=== PATIENT | male | born 2005 | race Asian ===

== ENCOUNTER 2025-02-06 19:35 | Emergency (ER) | payer OTHER, SELFPAY ==
--- NOTE | ~2025-02-06 | XR_ITS ---
CLINICAL HISTORY: injured playing soccer 2 view left tibia-fibula Comparison: None provided Findings No fractures or dislocations. No joint effusion. No radiopaque foreign body. IMPRESSION: 1. Normal left tibia-fibula This document has been electronically signed by: Thalia Frances MD on 02/06/2025 20:46:20
[2025-02-06 19:40] VITALS: BP 145/79; PULSE 96; RESP 20; TEMP 36.5; O2SAT 98; BMI 31.3
--- NOTE | 2025-02-06 19:41 | ED.GENADULT ---
HPI - General Adult General Chief complaint: Extremity Problem Stated complaint: injured lt leg playing soccer Time Seen by Provider: 02/06/25 20:48 Source: patient Mode of arrival: ambulatory Limitations: no limitations History of Present Illness ED Provider: Dr. Winkler HPI narrative: This is a 19-year-old male presenting to ER today for evaluation of left lower leg pain. Patient stated that he was playing soccer when he should attempt to kick the ball and felt a sudden onset of left lateral tibia pain. Patient has difficulty with ambulating due to the pain. Some tenderness upon flexion of the ankle. Related Data Allergies Allergy/AdvReac Type Severity Reaction Status Date / Time No Known Allergies Allergy Verified 02/06/25 19:42 Review of Systems Review of Systems: Pertinent review of systems as mentioned in HPI. All other system otherwise negative. [facility] Past Medical History [facility] Narrative: None Social History Social History Advance Directives: No Advance Directives Information Provided: No Physical Exam ED Exam Exam: General: Pleasant, no distress, interacting appropriately Head: Normacephalic, atraumatic Extremities: Lateral fibula tenderness on palpation. Reproducible on exam. Had full range of motion of ankle. And knee. Neurological: Awake and alert, no facial droop noted Skin: Warm and dry Psychiatric: Appropriate mood and thoughts Vital Signs: Vital Signs - 24 hr 02/06/25 19:40 02/06/25 21:14 02/06/25 21:23 Temperature 97.7 F 98.0 F 98.0 F Pulse Rate 96 91 91 Respiratory Rate 20 18 18 Blood Pressure 145/79 H 143/86 H 143/86 H Pulse Oximetry 98 96 96 Oxygen Delivery Method Room Air Room Air Room Air BMI result Body Mass Index 31.3 Course Course Course Narrative: This is a rapid medical exam performed by Fidelina Hennessy NP: Additional HPI, ROS, PE not included below will be deferred to primary provider. Patient is a 19y/o M presenting with L lower leg pain x a few hours. Was playing soccer, planted L foot, went to kick with R foot but before he could kick the ball he felt a pop to L lower leg and pain. Plan: xray Medications Administered Discontinued Medications Generic Name Dose Route Start Last Admin Trade Name Freq PRN Reason Stop Dose Admin Acetaminophen 975 mg 02/06/25 21:15 02/06/25 21:20 Acetaminophen 325 Mg Tablet PO 02/06/25 21:16 975 mg ONCE ONE Administration Ibuprofen 400 mg 02/06/25 21:15 02/06/25 21:20 Ibuprofen 400 Mg Tablet PO 02/06/25 21:16 400 mg ONCE ONE Administration Medical Decision Making Medical Decision Making [facility] Narrative: 19-year-old male presented hospital today for left leg pain after attempting to kick a soccer ball. Suspect patient likely has contusion of his left leg. Patient may also have a muscle tear from kicking the ball. We will plan to discharge the patient does time. Follow up with his primary care doctor. Referral to primary care doctor will be provided the patient. Patient is stable. Able to ambulate. X-ray was negative for any signs of fracture. Differential Diagnosis Differential Diagnoses: The differential diagnosis associated with the presentation includes Calf strain, sprain of ankle, fibular fracture Independent Interpretation I performed an independent interpretation of an: Plain X-Ray Radiology Impression Discussion of test interpretation with radiology: I have reviewed the radiologist's reading. Discharge Plan Discharge Clinical Impression: Injury of calf Patient Disposition: Home, Self-Care Additional Instructions: You can take tylenol 1000mg every 8 hours or ibuprofen 400mg every 8 hours. Use lidocaine patch as need as well. Activity as tolerated. I suspect you have a calf tear. This will take time to heal. Avoid strenuous activity Referrals: [facility] [place] Primary Ragini Robertson [Provider Group, Internal Medicine] Interventions: ED Discharge Assessment Last Done: 02/06/25 21:23 Discharge Date/Time: 02/06/25 21:23 Print Language: Bulgarian
[2025-02-06 21:14] VITALS: BP 143/86; PULSE 91; RESP 18; TEMP 36.7; O2SAT 96
--- OUTSIDE RECORDS SUMMARY | 2025-02-06 21:15 | XMS_ITS | Clinical Summary ---
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 Discussed options including behavioral health at [facility]. Assessment & Plan (05/28/2021 2:59 PM EST): PHQ 9 abnormal--but Sujal denies that there are any Significant problems- ( feels that it is situational and related to senior year at school ( senioritis ))-and is not interested in any intervention. Discussed options including behavioral health at [facility]. Follow clinically. Continue present management. BMI (body mass index), pedia tric, 85% to less than 95% for age 0105/18/2018 Overview (05/28/2021): Generally doing well; BMI now just over 85%ile Assessment & Plan (05/28/2021 2:55 PM EST): Generally doing well; BMI now just over 85%ile Discussed appropriate nutrition and diet. Avoid non-nutritious foods and snacks. Encourage exercise. (Sixty minutes of physical exercise a day is recommended). Limit screen time. Follow-up at next [facility]. Assessment & Plan (05/26/2020 4:20 PM EST): Improved BMI noted; now 84%ile Discussed appropriate nutrition and diet. Avoid non-nutritious foods and snacks. Encourage exercise. (Sixty minutes of physical exercise a day is recommended). Limit screen time. Follow-up at next [facility]. Assessment & Plan (05/20/2019 4:43 PM EST): Discussed appropriate nutrition and diet. Avoid non-nutritious foods and snacks. Encourage exercise. (Sixty minutes of physical exercise a day is recommended). Limit screen time. Follow-up at next [facility]. Assessment & Plan (05/18/2018 4:00 PM EST): Discussed appropriate nutrition and diet. Avoid non-nutritious foods and snacks. Encourage exercise. (Sixty minutes of physical exercise a day is recommended). Limit screen time. Follow-up at next [facility]. Resolved Problems Problem Noted Date Diagnosed Date Resolved Date Wears glasses 05/20/2019 05/26/2020 Overview (05/20/2019): Failed vision screening at school. Has seen optometry in the past and wears glasses. Assessment & Plan (05/20/2019 4:44 PM EST): Discussed results of vision screening. [place]commended [place] with [place] ( [place] [facility] [place] and revision of glasses. Influenza vaccine refused 05/18/2018 Immunizations Immunization Administration Dates Next Due DTaP 04/02/2004,02/29/2004,01/25/2004 HPV Vaccine 9 Valent 05/18/2018,02/18/2017 Hep A, ped/adol 12/23/2019,05/20/2019 Hep B, ped/adol 02/15/2016, 6,07/17/2012,04/02,02/29/2004,01/25/2004 Influenza, injectable, quadr ivalent, preservative free 01/15/2021,12/23/2019 Influenza, injectable, trivalent 02/18/2017 MMR 07/17/2012 MMRV 11/06/2016 Meningococcal Conj (Menactra) MCV4P 12/23/2019 Meningococcal Conj (Menveo) MCV4O 02/15/2016 OPV 07/17/2012, 4,02/29/2004,01/24 PPD Test 03/18/2016 Td (adult) (MBL), 2 Lf tetan us toxoid, PF, adsorbed 07/17/2012 Tdap 02/18/2017,02/15/2016 Varicella 07/17/2012 Social History Tobacco Use Types Packs/Day Years Used Date Smoking Tobacco: Never Smokeless Tobacco: Never Alcohol Use Standard Drinks/Week Comments Yes 0 (1 standard drink = 0.6 oz pur e alcohol) minimal; doesn't like it Hunger/Food Answer Date Recorded In the last 12 months, did y ou or your family ever eat less than you felt you should because there wasn't enough money for food? No 05/28/2021 Stable Housing Answer Date Recorded Are you worried that in the next 2 months you may not have stable housing? No 05/28/2021 Transportation Concerns Answer Date Rec orded In the last 12 months, have you or your family ever had to go without healthcare because you didn't have a way to get there? No 05/28/2021 Hazards in Home Answer Date Recorded Think about the place you li ve. Do you have problems with any of the following? Pests (mice or roaches), mold, no/not working smoke detectors, water leaks, no window guards. No 2021 Financing Utilities Answer Date Recorde d In the last 12 months, has t he electric, gas, oil, or water company threatened to shut off your services in your home? No 05/28/2021 Safety at Home Answer Date Recorded Are you or your family worried about feeling saf e in your home? No 05/28/2021 Outside Support Answer Date Recorded Do you feel that you need mo re support from other people or programs to help you care for yourself or your family? No 05/28/2021 Understanding Health Concerns Answer Da te Recorded Do you need help understandi ng your or your child's healthcare needs (diagnosis, medications, plan, etc.)? No 05/28/2021 Financing Health Concerns Answer Date R ecorded In the last 12 months, was t here a time when your child needed to see a doctor or get medications or supplies but could not because of cost? No 05/28/2021 Missing School or Work Answer Date Eliceo rded Did you or your child miss s chool or work because of a health problem that could have been avoided? No 05/28/2021 Sex and Gender Information Value Date Recorded Sex Assigned at Male 05/26/2020 4:21 PM EST Legal Sex Male 3:56 PM EST Gender Identity Male 05/26/2020 4:21 PM EST Sexual Orientation Straight 05/26/2020 4: 21 PM EST Last Filed Vital Signs Vital Sign Reading Time Taken Comments Blood Pressure 120/78 05/28/2021 2:31 PM EST Pulse 116 05/28/2021 2:31 PM EST Temperature 36.7 C (98.1 F) 04/16/2017 10:39 AM EST Respiratory Rate - - Oxygen Saturation 99% 05/18/2018 2:27 PM EST Inhaled Oxygen Concentration - - Weight 71.8 kg (158 lb 3.2 oz) 05/28/2021 2:31 P M EST Height 168.2 cm (5' 6.22 ) 05/28/2021 2:31 PM ES T Body Mass Index 25.36 05/28/2021 2:31 PM EST Plan of Treatment Health Maintenance Due Date Last Done Comments Men B Vaccine (1 of 2 - Standard) 2019 Influenza Vaccines (#1) 2024 03/08/20, 01/15/2021, 12/23/2019, Additional history exists COVID-19 Vaccine ( season) 2024 03/08/2022, 06/14/2021, 09/20/2020, Additional history exists DTaP,Tdap,and Td Vaccines (7 - Td or Tdap) 02/18/2027 02/18/2017, 02/15/2016, 07/17/2012, Additional history exists IPV Vaccines Completed 07/17/2012, 03/21, 02/29/2004, Additional history exists Hepatitis B Vaccines Completed 02/15/2016, 07/11/2015, 07/17/2012, Additional history exists MMR Vaccines Completed 11/06/2016, 07/17/2012 Varicella Vaccines Completed 11/06/2016, 07/17/2012 HPV Vaccines Completed 05/18/2018, 02/18/2017 Hepatitis A Vaccines Completed 12/23/2019, 05/20/19 20 Meningococcal Vaccine Completed 12/23/2019, 016 HIB Vaccines Aged Out No longer eligi ble based on patient's age to complete this topic Pneumococcal Vaccine Aged Out No long er eligible based on patient's age to complete this topic Insurance [facility] [employer]
[2025-02-06 21:23] VITALS: BP 143/86; PULSE 91; RESP 18; TEMP 36.7; O2SAT 96
== END 2025-02-06 21:23 | disposition home or self-care (01) ==
PROVIDERS: Emergency Provider Student in an Organized Health Care Education/Training Program
DX: S89.92XA Unspecified injury of left lower leg, initial encounter (principal); Y93.66 Activity, soccer; Y93.9 Activity, unspecified; Y92.9 Unspecified place or not applicable
CPT/HCPCS: 73590; 99283; 99284

== ENCOUNTER → 2025-02-06 19:42 | Outpatient (BNV) | payer SELFPAY | PROVIDERS: Emergency Provider Student in an Organized Health Care Education/Training Program; Visit Provider Radiology Diagnostic Radiology | DX: S82.302A Unspecified fracture of lower end of left tibia, initial encounter for closed fracture (principal); Y93.66 Activity, soccer; W21.02XA Struck by soccer ball, initial encounter | CPT/HCPCS: 73590 ==

== ENCOUNTER 2025-04-11 09:54 | Outpatient (AMB) | payer OTHER, SELFPAY ==
--- NOTE | 2025-04-11 10:02 | MHC.PC.OV ---
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: No Accompanied by: Self / Same As Patient Allergies No Known Allergies Allergy (Verified 04/11/25 10:02) Medication List - Last Reconciled 04/11/25 by Rafael Mitchell MD multivitamin 1 tab PO DAILY Tobacco use date assessed: 04/11/25 Dental Screening Dental Screen Date: 04/11/25 Did you have a dental visit in the last 12 months?: No Did you have a dental problem in the last 6 months where you did not have access to dental care?: No Was dental information given to patient?: Patient has dentist HPI HPI Comments History of Present Illness Details The patient is a 19 year old male presenting to [facility] primary care. He reports no current medical problems and takes no medications. Past medical history is notable for a sprained calf muscle a few months ago, which has since resolved. An x-ray performed at that time was normal. Family history is significant for a paternal grandfather with stomach cancer. His father recently had a benign polyp removed during a colonoscopy or endoscopy. There is no family history of colon cancer, high blood pressure, diabetes, or heart problems. [facility] Social History Housing: House Patient Tobacco Use Status: Never used Tobacco Tobacco use type: Cigarette e-Cigarette/Vaping Use: Never Used service: No Current occupational status: employed and student Current occupation: [employer] Cognitive needs: No Hearing needs: No Vision needs: Yes Questionnaire PHQ-9 Over the last 2 weeks, how often have you been bothered by any of the following problems? 1. Little interest or pleasure in doing things: not at all 2. Feeling down, depressed, or hopeless: not at all 3. Trouble falling or staying asleep, or sleeping too much: several days 4. Feeling tired or having little energy: not at all 5. Poor appetite or overeating: not at all 6. Feeling bad about yourself - or that you are a failure or have let yourself or your family down: not at all 7. Trouble concentrating on things, such as reading the newspaper or watching television: not at all 8. Moving or speaking so slowly that other people could have noticed. Or the opposite - being so fidgety or restless that you have been moving around a lot more than usual: not at all 9. Thoughts that you would be better off or of hurting yourself in some way: not at all Total score: 1 Source: Developed by Drs. Mj Bear, Lady Almonte, Linwood Ambriz and colleagues, with an educational yana from [employer]. Thrive Questionnaire Date Thrive assessed: 04/11/25 I am a: Patient What is your living situation today?: I have a steady place to live Within the past 12 months, did the food you bought not last and you didn't have the money to get more?: Never true Within the past 12 months, did you worry whether your food would run out before you got money to buy more?: Never true Do you have trouble paying for medicines?: No Do you have trouble getting transportation to medical appointments?: No Do you have trouble paying your heating and electricity bill?: No Do you have trouble taking care of your child, family member or friend?: No Do you have trouble with day-to-day activities such as bathing, preparing meals, shopping, managing finances, etc.?: No Are you currently unemployed and looking for a job?: No Are you interested in more education?: No THRIVE Score: 0 AUDIT C Alcohol Use Questionnaire (AUDIT-C) 1. How often do you have a drink containing alcohol?: Monthly or less 2. How many drinks containing alcohol do you have on a typical day when you are drinking?: 1 or 2 3. How often do you have six or more drinks on one occasion?: Never Total Score: 1 MARION-7 AMB Questionnaire MARION-7 Date MARION - 7 assessed: 04/11/25 Feeling nervous, anxious, or on edge: 1 = Several days Not being able to stop or control worryin = Several days Worrying too much about different things: 0 = Not at all Trouble relaxin = Not at all Being so restless that it is hard to sit still: 0 = Not at all Becoming easily annoyed or irritable: 1 = Several days Feeling afraid as if something awful might happen: 0 = Not at all Total MARION-7 score (0-4 normal; 5-9 mild; 10-14 moderate; 15-21 severe): 3 Source: Developed by Drs. Mj Bear, Lady Almonte, Linwood Ambriz and colleagues, with an educational yana from [employer]. Review of Systems Const Details: Positives besides what was mentioned in HPI are in BOLD Constitutional: No Weight Change, No Fever, No Chills, No Night Sweats, No Fatigue, No Malaise ENT/Mouth: No Hearing Changes, No Ear Pain, No Nasal Congestion, No Sinus Pain, No Hoarseness, No sore throat, No Rhinorrhea, No Swallowing Difficulty Eyes: No Eye Pain, No Swelling, No Redness, No Foreign Body, No Discharge, No Vision Changes Cardiovascular: No Chest Pain, No SOB, No PND, No Dyspnea on Exertion, No Orthopnea, No Claudication, No Edema, No Palpitations Respiratory: No Cough, No Sputum, No Wheezing, No Smoke Exposure, No Dyspnea Gastrointestinal: No Nausea, No Vomiting, No Diarrhea, No Constipation, No Pain, No Heartburn, No Anorexia, No Dysphagia, No Hematochezia, No Melena, No Flatulence, No Jaundice Genitourinary: No Dysmenorrhea, No DUB, No Dyspareunia, No Dysuria, No Urinary Frequency, No Hematuria, No Urinary Incontinence, No Urgency, No Flank Pain, No Urinary Flow Changes, No Hesitancy Musculoskeletal: No Arthralgias, No Myalgias, No Joint Swelling, No Joint Stiffness, No Back Pain, No Neck Pain, No Injury History Skin: No Skin Lesions, No Pruritis, No Hair Changes, No Breast/Skin Changes, No Nipple Discharge Neuro: No Weakness, No Numbness, No Paresthesias, No Loss of Consciousness, No Syncope, No Dizziness, No Headache, No Coordination Changes, No Recent Falls Psych: No Anxiety/Panic, No Depression, No Insomnia, No Personality Changes, No Delusions, No Rumination, No SI/HI/AH/VH, No Social Issues, No Memory Changes, No Violence/Abuse Hx., No Eating Concerns Heme/Lymph: No Bruising, No Bleeding, No Transfusions History, No Lymphadenopathy Endocrine: No Polyuria, No Polydipsia, No Temperature Intolerance Physical exam (Primary Care) Vital Signs: Last Vital Signs Temp 98.2 F 04/11/25 10:03 Pulse 77 04/11/25 10:03 Resp 16 04/11/25 10:03 BP 140/82 H 04/11/25 10:03 Pulse Ox 97 04/11/25 10:03 Oxygen Delivery Method Room Air 04/11/25 10:03 BMI result Body Mass Index 28.2 Tobacco/Smoking Status: Tobacco use Status Tobacco use date assessed 04/11/25 04/11/25 10:10 Patient Tobacco Use Status Never used Tobacco 04/11/25 10:10 Tobacco use type Cigarette 04/11/25 10:10 e-Cigarette/Vaping Use Never Used 04/11/25 10:10 PHQ-9: PHQ-9 Score PHQ-9: Total score 1 04/11/25 10:10 Thrive Assessment: Date of Thrive Assessment Date Thrive assessed 04/11/25 04/11/25 10:10 Const Other: Pertinent findings are in BOLD GENERAL APPEARANCE NAD, activity normal for age, well developed/ well nourished, no cyanosis, pallor, or diaphoresis. EYES lids/conjunctiva normal. EARS/NOSE/THROAT Mucous membranes moist, nares normal, lips/teeth normal uvula midline without oral pharyngeal erythema, exudate or swelling TMs normal bilaterally. No lymphangitis/lymphedema. HEAD/NECK normocephalic atraumatic, no facial trauma, neck is supple. RESPIRATORY respiratory effort normal, speaks in full sentences, no tripod position, no accessory muscle use. Lungs clear to auscultation without rhonchi, wheezes, rales CARDIAC Regular rate and rhythm, no edema. ABDOMINAL Soft, ND/NT. No evidence of fluid wave. No pulsatile masses on exam, rebound tenderness, Erickson sign or pain over Mcburney's point. MUSCLES/EXTREMITIES No abnormal range of motion, no swelling. SKIN Warm, pink and dry. No rashes, dermatoses, petechiae or lesions. NEUROLOGICAL Speech is clear and appropriate. Normal level of consciousness. Gait and coordination are normal. 5/5 strength in all extremities. PSYCH Normal mood and affect. Judgement/competence is appropriate Coding Level of Care Code New Pt Prev Care 18-39yr([id number] Diagnoses Healthcare maintenance Z00.00 Elevated blood pressure reading R03.0 Assessment & Plan Assessment & Plan (1) Healthcare maintenance: Code(s): Z00.00 - Encounter for general adult medical examination without abnormal findings Category: Medical Plan: CBC, CMP, Lipid panel, A1C, TSH w T4, vit D. Ordered. Shingles 2 doses when >50 yo. At 50. COVID: two doses. Completed. Pneumococcal: >50 yo. 18-49 with CKD, lung disease, weakened immune system, Heart disease, DM, cochlear implant. At 50. Flu vaccine: Today. Tdap: every 10 years. Patient reports it was 5 years ago. He will check his records at home. Colonoscopy: 45-75. At 45. AAA: 65 -75. NI[address] CT lun - 80. NI. PSA: 50 -70 every two years. At 50. HIV: Ordered. HCV: Ordered. (2) Elevated blood pressure reading: Code(s): R03.0 - Elevated blood-pressure reading, without diagnosis of hypertension Category: Medical Plan: - The patient's blood pressure was 140/82 mmHg. - The elevation is attributed to a possible 'white coat' effect given his young age. - No medication is indicated at this time. - Blood pressure will be monitored at subsequent visits. Plan I explained to the patient that while his blood pressure of 140/82 mmHg was slightly elevated, we would not start medication at this time given his young age and the possibility of a 'white coat' effect. I discussed the plan to order a full panel of baseline labs, including CBC, CMP, lipids, A1c, thyroid function, and one-time screenings for HIV and Hepatitis C. I advised him these labs should be performed while fasting and that he would need to come in on a different day to have them drawn. We discussed his immunization status, and he received a flu shot during the visit. I also advised him to check when his last tetanus shot was and to get a booster from a local pharmacy if it has been more than 10 years. Regarding his upcoming travel to [place], I reassured him that no specific vaccinations are recommended for that destination. I recommended a follow-up appointment in three months to review his lab work, after which we can shift to annual physicals. Orders: Orders Comprehensive Met. Panel Today Z00.00 - Encounter for general adult medical examination without abnormal findings Hemoglobin A1c Today Z00.00 - Encounter for general adult medical examination without abnormal findings Complete Blood Count no Diff Today Z00.00 - Encounter for general adult medical examination without abnormal findings HIV Ab/Ag Today Z.00 - Encounter for general adult medical examination without abnormal findings Hepatitis C Antibody Reflex Today Z. - Encounter for general adult medical examination without abnormal findings Lipid Panel Today Z. - Encounter for general adult medical examination without abnormal findings TSH reflex Free T4 Today Z00.00 - Encounter for general adult medical examination without abnormal findings
[2025-04-11 10:03] VITALS: BP 140/82; PULSE 77; RESP 16; TEMP 36.8; O2SAT 97; BMI 28.2
--- OUTSIDE RECORDS SUMMARY | 2025-04-11 11:42 | XMS_ITS | Clinical Summary ---
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
== END 2025-04-11 10:47 | disposition home or self-care (01) ==
LOC: HO.HMCH 09:54
PROVIDERS: Visit Provider Internal Medicine
DX: Z00.00 Encounter for general adult medical examination without abnormal findings (principal); R03.0 Elevated blood-pressure reading, without diagnosis of hypertension; Z23 Encounter for immunization

== ENCOUNTER → 2025-04-11 09:54 | Outpatient (BNVA) | payer OTHER, SELFPAY | PROVIDERS: Visit Provider Internal Medicine | DX: Z23 Encounter for immunization (principal); Z13.31 Encounter for screening for depression; Z13.39 Encounter for screening examination for other mental health and behavioral disorders | CPT/HCPCS: 90471; 90656; 96127 ==